=== PATIENT | male | born 1975 | race Caucasian/White ===

== ENCOUNTER 2018-06-06 20:09 | Emergency (ER) | payer OTHER ==
[~2018-06-06] VITALS: Ht 180.3 cm; Wt 161.0 kg
[2018-06-06] MEDS ORDERED: AMLO10TA8 PO (20:37)
[2018-06-06] MEDS ORDERED: VALS320T2 PO (20:37)
[2018-06-06] MEDS ORDERED: CARV25TA2 PO (20:37)
[2018-06-06] MEDS ORDERED: METF10007 PO (20:37)
[2018-06-06] MEDS ORDERED: CHLO25TA10 PO (20:37)
[2018-06-06 20:43] LABS: BASO # 0.2 x10^3/uL (0.0-0.2); BASO % 1 % (0-3); EOS # 0.1 x10^3/uL (0.0-0.7); EOS % 1 % (0-3); HEMATOCRIT 44.5 % (39.0-53.0); HEMOGLOBIN 15.7 g/dL (13.0-17.5); LYMPH # 2.8 x10^3/uL (1.0-4.8); LYMPH % 17 % (24-48); MEAN CORPUSCULAR HEMOGLOBIN 29 pg (25-35); MEAN CORPUSCULAR HGB CONC 35 g/dL (31-37); MEAN CORPUSCULAR VOLUME 83 fL (79-100); MONO # 0.9 x10^3/uL (0.0-1.1); MONO % 5 % (0-9); NEUT # 12.8 x10^3uL (1.8-7.7); NEUT % 77 % (31-73); PLATELET COUNT 318 x10^3/uL (140-400); RED BLOOD COUNT 5.37 x10^6/uL (4.30-5.70); RED CELL DISTRIBUTION WIDTH 14.2 % (11.5-14.5); WHITE BLOOD COUNT 16.7 x10^3/uL (4.0-11.0)
[2018-06-06 20:52] LABS: CALCIUM 9.1 mg/dL (8.5-10.1); CREATININE 1.5 mg/dL (0.7-1.3); GFR 51.1; POTASSIUM 3.5 mmol/L (3.5-5.1)
[2018-06-06 20:59] LABS: ALBUMIN 3.8 g/dL (3.4-5.0); ALBUMIN/GLOBULIN RATIO 0.9 (1.0-1.7); MAGNESIUM 1.5 mg/dL (1.8-2.4); TOTAL BILIRUBIN 0.6 mg/dL (0.2-1.0)
[2018-06-06] MEDS ORDERED: ONDANSETRON PF 4 MG/2 ML VIAL. IV ONE (21:00)
[2018-06-06] MEDS ORDERED: IV NORMAL SALINE 1000ML BAG 1,000 ML IV ONE (21:00)
[2018-06-06] MEDS ORDERED: fentaNYL PF VIAL 100 MCG/2 ML VIAL IV ONE (21:00)
--- NOTE | 2018-06-06 21:02 | RAD ---
CT abdomen and pelvis without contrast 06/06/2018. Reason for exam: Right flank pain. History of kidney stones. Helical noncontrast images were performed. Exposure: One or more of the following individualized dose reduction techniques were utilized for this examination: 1. Automated exposure control 2. Adjustment of the mA and/or kV according to patient size 3. Use of iterative reconstruction technique. FINDINGS: The lung bases are clear. The distal descending thoracic aorta is dilated up to about 4.1 cm. The liver and spleen are homogeneous in density and normal in configuration. Evaluation of the solid organs is somewhat limited by lack of IV contrast. The kidneys show no apparent mass or calcification. There is some perinephric edema on the right. There is mild right-sided hydronephrosis and hydroureter secondary to a 2 mm stone at the right vesicoureteral junction. The adrenal glands are not enlarged. The pancreas appears normal. No retroperitoneal or mesenteric adenopathy is seen. The abdominal aorta is dilated, measuring up to about 4.0 cm AP. Some dilatation continues into the left common iliac artery, which measures up to 2.9 cm. No abdominal mass or inflammatory process is seen. Images through the pelvis show possible mild bladder wall thickening. Bladder was not well-distended. No pelvic or inguinal adenopathy is seen. 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 There is mild to moderate right ureteral obstruction secondary to a 2 mm stone at the vesicoureteral junction. Electronically signed by: Leander Cruz Jr., MD (06/06/2018 8:58 PM) [facility]
[2018-06-06 21:10] LABS: % LYMPHS 18 % (24-48); % MONOS 1 % (0-10); % SEGS 81 % (35-66); PLT ESTIMATE ADEQUATE (ADEQUATE)
[2018-06-06 21:44] LABS: BILIRUBIN,URINE NEGATIVE (NEG); CLARITY,URINE CLEAR; COLOR,URINE YELLOW; NITRITE,URINE NEGATIVE (NEG); PH,URINE 5.5; PROTEIN,URINE NEGATIVE (NEG-TRACE); UROBILINOGEN,URINE 0.2 mg/dL (0.2 mg/dL)
--- NOTE | 2018-06-06 21:46 | PHYS DOC ---
Past Medical History Past Medical History: Heart Disease, Hypertension Additional Past Medical Histor: KIDNEY STONE Alcohol Use: Occasionally Drug Use: None Adult General Chief Complaint Chief Complaint: FLANK PAIN HPI HPI 42-year-old male presents to ER for complaints of right flank pain which started 2 days ago. Patient has had decreased urine output, nausea and vomiting , and decreased appetite. Patient has concerns for UTI although reports he also has had kidney stone history. Patient denies fever. Patient denies diarrhea. Patient reports he has had multiple episodes of vomiting today. Patient reports he's had generalized fatigue. Pt denies hematuria or incontinence. Review of Systems Review of Systems Constitutional: Denies fever. Reports chills and generalized fatigue HENT: Denies nasal congestion or sore throat [] Respiratory: Denies cough or shortness of breath [] Cardiovascular: Denies chest pain or palpitations GI: Denies abdominal pain, bloody stools or diarrhea. Reports right flank pain. Reports remittent nausea and multiple episodes of vomiting : Denies hematuria. Reports dysuria and decreased urinary output Musculoskeletal: Denies joint pain [] Integument: Denies rash, swelling or skin lesions [] Neurologic: Denies headache, focal weakness or sensory changes [] Endocrine: Denies polyuria or polydipsia [] All other systems were reviewed and found to be within normal limits, except as documented in this note. Current Medications Current Medications Current Medications Medications (Trade) Dose Ordered Sig/Carmenza Start Time Stop Time Status Last Admin Dose Admin Fentanyl Citrate (Fentanyl 2ml Vial) 50 mcg 1X ONCE 06/06/18 21:00 06/06/18 21:01 DC 06/06/18 20:52 50 MCG Ketorolac Tromethamine (Toradol 15mg Vial) 15 mg 1X ONCE 06/06/18 22:45 06/06/18 22:46 DC 06/06/18 22:41 15 MG Ondansetron HCl (Zofran) 4 mg 1X ONCE 06/06/18 21:00 06/06/18 21:01 DC 06/06/18 20:51 4 MG Sodium Chloride 1,000 ml @ 1,000 mls/hr 1X ONCE 06/06/18 21:00 06/06/18 21:59 DC 06/06/18 20:52 1,000 MLS/HR Allergies Allergies Allergies Coded Allergies Type Severity Reaction Last Updated Verified No Known Drug Allergies 06/06/18 No Physical Exam Physical Exam Constitutional: Well developed, well nourished, no acute distress, non-toxic appearance. [] HENT: Normocephalic, atraumatic, mucous membranes pink/dry nose normal. [] Eyes: Pupils equal, conjunctiva normal, no discharge. [] Neck: Normal range of motion, no tenderness, supple, no stridor. [] Cardiovascular: Tachycardic heart rate regular rhythm, no murmur [] Lungs & Thorax: Bilateral breath sounds clear to auscultation. Resp. equal/ nonlabored Abdomen: Bowel sounds normal, soft/obese- no distention/rigidity, no tenderness , no masses, no pulsatile masses. [] Skin: Warm, dry, no erythema, no rash. [] Back: No tenderness, no left-sided CVA tenderness. Mild right side CVA tenderness Extremities: No tenderness, no cyanosis, no clubbing, ROM intact, no edema. [] Neurologic: Alert and oriented X 3, normal motor function, normal sensory function, no focal deficits noted. [] Psychologic: Affect normal, judgement normal, mood normal. [] Current Patient Data Vital Signs Vital Signs Date Time Temp Pulse Resp B/P (MAP) Pulse Ox O2 Delivery O2 Flow Rate FiO2 06/06/18 22:41 99 20 176/110 (132) 98 06/06/18 21:15 Nasal Cannula 2.0 06/06/18 20:20 99.0 99.0 Lab Values Laboratory Tests Test 06/06/18 20:10 06/06/18 20:35 Urine Collection Type Unknown Urine Color Yellow Urine Clarity Clear Urine pH 5.5 Urine Specific [place] 1.020 Urine Protein Negative mg/dL (NEG-TRACE) Urine Glucose (UA) Negative mg/dL (NEG) Urine Ketones (Stick) 15 mg/dL (NEG) Urine Blood Trace (NEG) Urine Nitrite Negative (NEG) Urine Bilirubin Negative (NEG) Urine Urobilinogen Dipstick 0.2 mg/dL (0.2 mg/dL) Urine Leukocyte Esterase Negative (NEG) Urine RBC 3-5 /HPF (0-2) Urine WBC 1-4 /HPF (0-4) Urine Squamous Epithelial Cells Occ /LPF Urine Bacteria 0 /HPF (0-FEW) Urine Mucus Mod /LPF White Blood Count 16.7 x10^3/uL (4.0-11.0) H Red Blood Count 5.37 x10^6/uL (4.30-5.70) Hemoglobin 15.7 g/dL (13.0-17.5) Hematocrit 44.5 % (39.0-53.0) Mean Corpuscular Volume 83 fL (79-100) Mean Corpuscular Hemoglobin 29 pg (25-35) Mean Corpuscular Hemoglobin Concent 35 g/dL (31-37) Red Cell Distribution Width 14.2 % (11.5-14.5) Platelet Count 318 x10^3/uL (140-400) Neutrophils (%) (Auto) 77 % (31-73) H Lymphocytes (%) (Auto) 17 % (24-48) L Monocytes (%) (Auto) 5 % (0-9) Eosinophils (%) (Auto) 1 % (0-3) Basophils (%) (Auto) 1 % (0-3) Neutrophils # (Auto) 12.8 x10^3uL (1.8-7.7) H Lymphocytes # (Auto) 2.8 x10^3/uL (1.0-4.8) Monocytes # (Auto) 0.9 x10^3/uL (0.0-1.1) Eosinophils # (Auto) 0.1 x10^3/uL (0.0-0.7) Basophils # (Auto) 0.2 x10^3/uL (0.0-0.2) Segmented Neutrophils % 81 % (35-66) H Lymphocytes % 18 % (24-48) L Monocytes % 1 % (0-10) Platelet Estimate Adequate (ADEQUATE) Sodium Level 132 mmol/L (136-145) L Potassium Level 3.5 mmol/L (3.5-5.1) Chloride Level 96 mmol/L (98-107) L Carbon Dioxide Level 25 mmol/L (21-32) Anion Gap 11 (6-14) Blood Urea Nitrogen 25 mg/dL (8-26) Creatinine 1.5 mg/dL (0.7-1.3) H Estimated GFR (Cockcroft-Gault) 51.1 BUN/Creatinine Ratio 17 (6-20) Glucose Level 153 mg/dL (70-99) H Calcium Level 9.1 mg/dL (8.5-10.1) Magnesium Level 1.5 mg/dL (1.8-2.4) L Total Bilirubin 0.6 mg/dL (0.2-1.0) Aspartate Amino Transferase (AST) 18 U/L (15-37) Alanine Aminotransferase (ALT) 28 U/L (16-63) Alkaline Phosphatase 57 U/L (46-116) Total Protein 8.0 g/dL (6.4-8.2) Albumin 3.8 g/dL (3.4-5.0) Albumin/Globulin Ratio 0.9 (1.0-1.7) L Laboratory Tests 06/06/18 20:35 Laboratory Tests 06/06/18 20:35 EKG EKG [] Radiology/Procedures Radiology/Procedures PROCEDURE: CT ABDOMEN PELVIS WO CONTRAST CT abdomen and pelvis without contrast 06/06/2018. Reason for exam: Right flank pain. History of kidney stones. Helical noncontrast images were performed. Exposure: One or more of the following individualized dose reduction techniques were utilized for this examination: 1. Automated exposure control 2. Adjustment of the mA and/or kV according to patient size 3. Use of iterative reconstruction technique. FINDINGS: The lung bases are clear. The distal descending thoracic aorta is dilated up to about 4.1 cm. The liver and spleen are homogeneous in density and normal in configuration. Evaluation of the solid organs is somewhat limited by lack of IV contrast. The kidneys show no apparent mass or calcification. There is some perinephric edema on the right. There is mild right-sided hydronephrosis and hydroureter secondary to a 2 mm stone at the right vesicoureteral junction. The adrenal glands are not enlarged. The pancreas appears normal. No retroperitoneal or mesenteric adenopathy is seen. The abdominal aorta is dilated, measuring up to about 4.0 cm AP. Some dilatation continues into the left common iliac artery, which measures up to 2.9 cm. No abdominal mass or inflammatory process is seen. Images through the pelvis show possible mild bladder wall thickening. Bladder was not well-distended. No pelvic or inguinal adenopathy is seen. 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 There is mild to moderate right ureteral obstruction secondary to a 2 mm stone at the vesicoureteral junction. Electronically signed by: Leander Henderson Jr., MD (06/06/2018 8:58 PM) [facility] DICTATED and SIGNED BY: LEANDER HENDERSON Jr, MD DATE: 06/06/182052 Course & Med Decision Making Course & Med Decision Making Pertinent Labs and Imaging studies reviewed. (See chart for details) 2125: Discussed CT results with patient and his girlfriend with distal abdominal aorta aneurysm at 4.1 cm. Patient's girlfriend reports they were aware of this finding on previous imaging they are uncertain as to what the size was previously. CT results with no findings for dissection. CT with report of "There is mild to moderate right ureteral obstruction secondary to a 2 mm stone at the vesicoureteral junction". This time patient reports he is feeling better since receiving IV fluids and medications. Patient is ambulatory to the bathroom to provide UA specimen. Discussed WBCs at 16.7 no bands on differential ; creatinine 1.5 with patient reporting he had had decreased fluid intake over the past 2 days. IV NS 1 L fluid bolus has been given. 2225: Discussed UA results with pt and girlfriend with 15 ketones trace blood neg. leuks/nitrates. Admission was offered for further care/monitoring and with improved sxs pt is preferring home discharge. Discussed increasing fluids. Discussed prescriptions being provided for Zofran ODT, Flomax, and Pinch with education on the medication. Discussed use of [id number] ibuprofen as directed on container with minimal intake to prevent further kidney injury. Patient's creatinine was up to 1.5 which he was provided with fluid bolus while in the ER. Patient did have elevated white count of 16.7 no bands which was discussed with patient and his girlfriend which could be related to stress as patient had been actively vomiting for the past 2 days and was in moderate pain during initial exam. Education provided on signs and symptoms to return to ER for. Pt comfortable with home discharge plan as discussed. Advised on continuing home medications as Rx'd. Will provide referral information for urology and patient was advised to call as soon as possible to schedule follow- up appointment. Advised patient and his girlfriend that they should continue regular follow-ups for dilation of abdominal aorta and left common iliac artery. Copy of CT results were provided for follow-up purposes. Discharge instructions were discussed at time of discharge patient is radiating right flank pain at 1-2 will provide dose of Toradol prior to discharge. Discussed pt's case, test results, and plan of care with Dr. Maldonado. Pt was discharged without this provider being advised of elevated BP at time of discharge. Pt had hx of HTN and with N/V he had not taken his medications today. Dragon Disclaimer Dragon Disclaimer This electronic medical record was generated, in whole or in part, using a voice recognition dictation system. Departure Departure Impression: Primary Impression: Right kidney stone Additional Impressions: Nausea and vomiting Dehydration Disposition: HOME, SELF-CARE Condition: STABLE Patient Instructions: Dehydration, Adult, Diet for Kidney Stones, Kidney Stones , Nausea and Vomiting Additional Instructions: Drink plenty of fluids. Ibuprofen as directed on container if pain medication is not providing adequate pain relief- take minimal dose to prevent kidney injury. Call and schedule follow-up appointment with urologist for re-evaluation and further care. As discussed you should continue to have regular follow-up appointment to monitor size of your aneurysm. Scripts Hydrocodone/Apap 5-325 (NORCO 5-325 TABLET) 1 Each Tablet 1-2 TAB PO Q4-6HRS PRN for PAIN, #14 TAB 0 Refills No driving or drinking alcohol while taking this medication Prov: TERESA DONAHUE APRN 06/06/18 Tamsulosin Hcl (FLOMAX) 0.4 Mg Cap.er.24h 1 CAP PO DAILY, #7 CAP 0 Refills Prov: TERESA DONAHUE APRN 06/06/18 Ondansetron (ONDANSETRON ODT) 4 Mg Tab.rapdis 1 TAB PO PRN Q6-8HRS PRN for NAUSEA, #8 TAB 0 Refills Prov: TERESA DONAHUE APRN 06/06/18 Problem Qualifiers TERESA DONAHUE APRN Jun 06, 2018 21:46
[2018-06-06 21:59] LABS: BACTERIA,URINE 0 /HPF (0-FEW); SQUAMOUS EPITHELIAL CELL,UR OCC /LPF
[2018-06-06 22:41] VITALS: BP 176/110
[2018-06-06] MEDS ORDERED: KETOROLAC 15 MG/ML VIAL. IV ONE (22:45)
[2018-06-06] MEDS ORDERED: HYDR-3164 PO (22:52)
[2018-06-06] MEDS ORDERED: TAMS0.4C97 PO (22:52)
[2018-06-06] MEDS ORDERED: ONDA4TAB12 PO (22:52)
== END 2018-06-06 22:57 | disposition home or self-care (01) ==
LOC: ER 20:09
DX: N20.0 Calculus of kidney (principal); R11.2 Nausea with vomiting, unspecified; E86.0 Dehydration; I10 Essential (primary) hypertension
CPT/HCPCS: 36415; 74176; 80053; 81001; 83735; 85007; 85025; 96374; 96375; 99284; J1885; J2405; J3010; J7030

== ENCOUNTER 2019-09-27 20:29 | Emergency (ER) | payer OTHER ==
[~2019-09-27] VITALS: Ht 180.3 cm; Wt 152.0 kg
[~2019-09-27 20:29] MED LIST: AMLO10TA8 PO; CARV25TA2 PO; CHLO25TA10 PO; HYDR-3164 PO; METF10007 PO; ONDA4TAB12 PO; TAMS0.4C97 PO; VALS320T2 PO
[2019-09-27 20:50] VITALS: BP 185/107
--- NOTE | 2019-09-27 22:33 | RAD ---
EXAM: AP, oblique and lateral views of the left foot DATE: 09/27/2019 9:24 PM INDICATION: Forefoot pain COMPARISON: No Prior FINDINGS: Moderate soft tissue swelling about the forefoot and midfoot. Midfoot degenerative changes are seen. Calcaneal enthesopathy. No acute fracture. IMPRESSION: 1. No evidence of acute fracture or dislocation. 2. Moderate forefoot soft tissue swelling is seen. 3. Midfoot degenerative changes are seen. Electronically signed by: Bartolome Amaya MD (09/27/2019 10:30 PM) [facility]
--- NOTE | 2019-09-27 22:47 | PHYS DOC ---
Past Medical History Past Medical History: Diabetes-Type II, Heart Disease, Hypertension, Kidney Stone Additional Past Medical Histor: Aoritic dissection Past Surgical History: No Surgical History Smoking Status: Never Smoker Alcohol Use: Occasionally Drug Use: None General Adult EDM: Chief Complaint: LOWER EXT PAIN HPI: HPI: 44 year old male presents with report of left foot pain and swelling. Reports he "rolled" his left ankle 3 days ago when he "missed a step" in his garden. Reports pain has increased since then and now has difficulty with ambulation or bearing weight. Denies other injury. Denies headache or neck pain. Denies numbness or tingling. Review of Systems: Review of Systems: Constitutional: Denies fever or chills Eyes: Denies change in visual acuity, or eye pain HENT: Denies nasal congestion or sore throat Respiratory: Denies cough or shortness of breath Cardiovascular: Denies chest pain or palpitations GI: Denies abdominal pain, nausea, or vomiting : Denies dysuria or hematuria Musculoskeletal: Reports left foot pain and swelling Integument: Denies rash or skin lesions Neurologic: Denies headache, focal weakness or sensory changes Complete systems were reviewed and found to be within normal limits, except as documented in this note. Allergies: Allergies: Allergies Coded Allergies Type Severity Reaction Last Updated Verified No Known Drug Allergies 06/06/18 No Physical Exam: PE: Constitutional: Well developed, well nourished, no acute distress, non-toxic appearance HENT: Normocephalic, atraumatic, oropharynx moist Eyes: Conjunctiva normal, no discharge Neck: Normal range of motion, no tenderness, supple Cardiovascular: Heart rate normal, regular rhythm Lungs & Thorax: Bilateral breath sounds clear to auscultation, no wheezes Abdomen: Soft, no tenderness Skin: Warm, dry, no erythema Back: No tenderness, no CVA tenderness Extremities: Left forefoot pain on palpation tenderness, Left PT and DP +2. ROM intact, no edema Neurologic: Alert and oriented X 3, no focal deficits noted Psychologic: Affect normal, judgement normal Current Patient Data: Vital Signs: Vital Signs Date Time Temp Pulse Resp B/P (MAP) Pulse Ox O2 Delivery O2 Flow Rate FiO2 //20 20:50 97.5 91 18 95 Room Air 97.5 EKG: EKG: [] Radiology/Procedures: Radiology/Procedures: PROCEDURE: FOOT LEFT 3V EXAM: AP, oblique and lateral views of the left foot DATE: 09/27/2019 9:24 PM INDICATION: Forefoot pain COMPARISON: No Prior FINDINGS: Moderate soft tissue swelling about the forefoot and midfoot. Midfoot degenerative changes are seen. Calcaneal enthesopathy. No acute fracture. IMPRESSION: 1. No evidence of acute fracture or dislocation. 2. Moderate forefoot soft tissue swelling is seen. 3. Midfoot degenerative changes are seen. Electronically signed by: Bartolome Amaya MD (09/27/2019 10:30 PM) [facility] Course & Med Decision Making: Course & Med Decision Making Pertinent Imaging studies reviewed. (See chart for details) Patient presents with left foot pain s/p "rolling" it in garden a few days ago. No ankle pain. Liimb neurovascularly intact. XR obtained without acute process. ICE applied. Pain addressed. Post op shoe applied. Patient stable for discharge with outpatient follow-up with PCP. Discussed findings and plan with patient, who acknowledges understanding and agreement. Joao Disclaimer: Joao Disclaimer: This electronic medical record was generated, in whole or in part, using a voice recognition dictation system. Splinting Splinting : Location: Left foot Pre-Made Type: post op shoe Pre-Proc Neuro Vasc Exam: normal Post-Proc Neuro Vasc Exam: normal, unchanged from pre-exam Departure Departure Impression: Primary Impression: Foot sprain Qualified Codes: S93.602A - Unspecified sprain of left foot, initial encounter Disposition: 01 HOME, SELF-CARE Condition: STABLE Referrals: MARTHA MATUTE MD (PCP) JUMA TRONCOSO MD Patient Instructions: Foot Sprain, Hard-Soled Shoe Additional Instructions: Use over the counter Tylenol and/or Ibuprofen for pain or discomfort. ICE area 20 min on and then leave off for next 20 min. Repeat over the next few days. BEAR GRANT DO September 27, 2019 22:47
== END 2019-09-27 23:02 | disposition home or self-care (01) ==
LOC: ER 20:29
DX: S93.692A Other sprain of left foot, initial encounter (principal); R60.0 Localized edema; I11.9 Hypertensive heart disease without heart failure; Z87.442 Personal history of urinary calculi; X50.0XXA Overexertion from strenuous movement or load, initial encounter; Y93.89 Activity, other specified; Y92.89 Other specified places as the place of occurrence of the external cause; Y99.8 Other external cause status
CPT/HCPCS: 29515; 73630; 99283